=== PATIENT | female | born 1950 | race Caucasian/White ===

== ENCOUNTER → 2017-05-31 | Outpatient (CLI) | payer MEDICARE, BC | LOC: RAD 12:00 | DX: R01.2 Other cardiac sounds (principal); I34.0 Nonrheumatic mitral (valve) insufficiency ==

== ENCOUNTER → 2017-06-08 | Outpatient (CLI) | payer MEDICARE, BC | LOC: CARDREHAB 09:44 | DX: R07.9 Chest pain, unspecified (principal) | CPT/HCPCS: A9500 ==

== ENCOUNTER → 2018-04-01 | Outpatient (CLI) | payer MEDICARE, BC | LOC: MAMMO 07:00 | DX: N63.20 Unspecified lump in the left breast, unspecified quadrant (principal) ==

== ENCOUNTER → 2018-10-07 | Outpatient (CLI) | payer MEDICARE, BC | LOC: MAMMO 10-01 08:18 | DX: N63.20 Unspecified lump in the left breast, unspecified quadrant (principal); Z98.890 Other specified postprocedural states ==

== ENCOUNTER → 2019-03-03 | Outpatient (CLI) | payer MEDICARE, BC | LOC: RAD 09:29 | DX: K76.0 Fatty (change of) liver, not elsewhere classified (principal) ==

== ENCOUNTER → 2020-02-11 | Outpatient (CLI) | payer MEDICARE, BC | LOC: MAMMO 11:12 | DX: Z12.31 Encounter for screening mammogram for malignant neoplasm of breast (principal) ==

== ENCOUNTER 2020-03-04 08:30 | Outpatient (RCR) | payer MEDICARE, BC | END 2020-03-04 09:00 | disposition still patient (30) | LOC: PT 08:30 | DX: M17.12 Unilateral primary osteoarthritis, left knee (principal); Z96.651 Presence of right artificial knee joint ==

== ENCOUNTER 2020-05-26 10:00 | Outpatient (RCR) | payer MEDICARE, BC | END 2020-05-26 10:30 | disposition home or self-care (01) | LOC: PT 10:00 | DX: Z96.651 Presence of right artificial knee joint (principal) ==

== ENCOUNTER 2020-07-01 10:00 | Outpatient (RCR) | payer MEDICARE, BC | END 2020-07-01 10:30 | disposition home or self-care (01) | LOC: PT 10:00 | DX: Z96.651 Presence of right artificial knee joint (principal) ==

== ENCOUNTER → 2021-05-25 | Outpatient (CLI) | payer MEDICARE, BC | LOC: MAMMO 11:21 | DX: Z12.31 Encounter for screening mammogram for malignant neoplasm of breast (principal) ==

== ENCOUNTER 2023-12-28 08:00 | Outpatient (RCR) | payer MEDICARE, BC | END 2024-01-25 | LOC: OT | DX: M25.531 Pain in right wrist (principal) ==